=== PATIENT | male | born 1955 | race Caucasian/White ===

== ENCOUNTER 2022-01-24 07:50 | Outpatient (RCR) | payer MEDICARE, SELFPAY ==
--- NOTE | 2022-01-24 08:04 | PTOPEVAL1 ---
Assessment and note entered by Georgi Martini Evaluation Information Assessment Status Evaluation Diagnosis right shoulder pain Onset 04/10/21 Subjective Information Pt. reports that he began noticing shoulder pain at the beginning of the year. He reports that while performing some yard work he began noting discomfort in the right shoulder. He describes pain in the lateral brachial region. He has difficulty with reaching behind the back or raising his arm to reach overhead. He states that pain in the right shoulder will wake him at night . He is currently taking Diclofenac, which has helped to reduce his pain. He reports that he enjoys bike riding and pain will affect riding the bike. He reports that his goal is to decrease his right shoulder pain. Reported Pain Level Pain Score 9,2: Self Report Assessment PT Clinical Summary Pt. is a 66 year old male who enters the clinic with right shoulder pain. He presents with indication of right shoulder impingement syndrome. He currently presents with right shoulder pain, weakness, impaired ROM and impaired postural awareness. Continued treatment is indicated in order to address these areas to allow for improved comfort with all IADL's. Plan of Care Interventions Electrical Stimulation,Hot Pack/Cold Pack,Manual Therapy,Patient/Caregiver Educati,Therapeutic Activities,Therapeutic Exercise PT Services Indicated Yes Treatment Frequency and 2x/week x 8 visits Duration These treatments will address the objective and functional deficits as defined above. The patient will be advanced safely and appropriately in order for the patient to progress towards his/her prior level of function. Additional exercises will be introduced and as well as a comprehensive home exercise program upon discharge, if needed, ?to ensure carryover of functional gains achieved in the clinic. This treatment plan has been reviewed and agreement upon by the patient.
--- NOTE | 2022-02-16 08:35 | PTOPREEVAL ---
Assessment and note entered by JT File, PT Evaluation Information Assessment Status Re-evaluation Diagnosis right shoulder pain Onset 04/10/21 Subjective Information patient reports he feels 99% better at rest this morning. however, he reports last night laying on the couch he had his arms up and behind his head and reports the pain in the top of his R shoulder prevented him from continuing to lay there. he reports pain in the anterior R shoulder along the long head tendon of the biceps in the bicipital groove with a combined flexion/abduction/ER movement such as when reaching behind his head. he also reports pain with reaching across his body. patient reports he is better overall in the fact that he no longer has constant discomfort, he is sleeping at night, and reports his pain is lower. he reports the shoulder is usable and he is able to live with it now compared to how he felt when he started therapy. patient reports he is still unable to participate in fishing which he loves to do. Reported Pain Level Pain Score 0,2: Self Report Assessment PT Clinical Summary mr. castro presents to skilled PT services for his 8th skilled therapy visit. thus far, he has been receiving treatment for the R shoulder including rom exercises, strength exercises, and manual therapy. he has also been receiving mechanical traction to the cervical spine for possible nerve related symptoms in the R shoulder. as of this date, he reports feeling much better, but continues to report pain in the anterior R shoulder, impingement symptoms, tendionpathies, and positive ulnar and median ULTT. he display no cervical symptoms. he would do well to continue skilled PT with focus on new addition of nerve glides, continued shoulder strengthening, and flexibility of the R UE to improve rom and functional reaching. patient continues to have met only 1 goal thus far, but is making progress towards all other goals. Plan of Care Interventions Manual Therapy,Mechanical Traction,Patient/ Caregiver Educati,Therapeutic Activities, Therapeutic Exercise PT Services Indicated Yes Treatment Frequency and continue skilled PT 2x weekly for 6 more visits Duration These treatments will address the objective and functional deficits as defined above.
== END 2022-03-09 11:12 | disposition home or self-care (01) ==
LOC: CHSPT 07:50
PROVIDERS: Visit Provider Physician Assistant
DX: M25.511 Pain in right shoulder (principal)
CPT/HCPCS: 97012; 97014; 97110; 97140; 97161; G0283

== ENCOUNTER → 2022-09-03 08:33 | Outpatient (CLI) | payer MEDICARE, SELFPAY ==
--- NOTE | ~2022-09-03 | MR_ITS ---
EXAMINATION: MR knee RT wo con DATE: 09/03/2022 09:42 INDICATION: Medial right knee pain. TECHNIQUE: Magnetic resonance imaging (MRI) of the right knee was performed without intravenous contr ast. Sequences included axial PD-weighted FS FSE, coronal PD-weighted FSE and PD-weighted FS FSE, sag ittal PD-weighted FSE, and sagittal T2-weighted FS FSE. COMPARISON: None. FINDINGS: Medial compartment: There is a complex tear involving body and posterior horn of medial meniscus with flap component infe rior to the body segment in the inferior gutter. There is shallow partial-thickness cartilage loss of tibial condyle. There is partial-thickness cartilage loss of femoral condyle, deep at the lateral ar ticular surface. Tiny osteophytes are noted. Lateral compartment: Lateral meniscus is normal. There is cartilage surface irregularity of tibial condyle and femoral con dyle. Patellofemoral compartment: There is deep partial thickness cartilage loss of patellar medial facet. There is cartilage surface i rregularity of trochlea. Osteophytes are noted. Ligaments and tendons: The anterior and posterior cruciate ligaments are normal. There is a sprain of medial collateral liga ment characterized by thickening and increased signal intensity proximally and surrounding edema. The re are changes of prior sprain of fibular collateral ligament characterized with thickening and incre ased signal intensity proximally. There is mild patellar tendinopathy. Fluid: There is a small knee joint effusion. There is mild prepatellar superficial infrapatellar bursitis. T here is trace fluid in a Jimenez's cyst. There is mild pes anserinus bursitis. IMPRESSION: 1. Moderate chondrosis of medial and patellofemoral compartments and mild chondrosis of lateral yecenia rtment. 2. Tear of medial meniscus. 3. Grade 2 sprain of medial collateral ligament. 4. Small knee joint effusion. Reviewed, dictated and finalized at location A. IMPRESSION: 1. Moderate chondrosis of medial and patellofemoral compartments and mild chond rosis of lateral compartment. 2. Tear of medial meniscus. 3. Grade 2 sprain of medial collateral ligament. 4. Small knee joint effusion.
== END ==
PROVIDERS: PCP Family Medicine Adolescent Medicine; Visit Provider Family Medicine Adolescent Medicine
DX: M25.561 Pain in right knee (principal); M22.2X1 Patellofemoral disorders, right knee; S83.241A Other tear of medial meniscus, current injury, right knee, initial encounter; M25.461 Effusion, right knee
CPT/HCPCS: 73721

== ENCOUNTER 2023-09-14 11:17 | Emergency (ER) | payer MEDICARE, SELFPAY ==
[2023-09-14 11:31] VITALS: BP 114/77; PULSE 59; RESP 18; TEMP 36.6; O2SAT 97
--- NOTE | 2023-09-14 12:30 | ED.SKABFB ---
HPI - Skin/Abscess/Foreign Bdy General Chief complaint: Skin/Abscess/Foreign Body Stated complaint: Poison Lauren Time Seen by Provider: 09/14/23 12:30 Source: patient Mode of arrival: ambulatory Limitations: no limitations History of Present Illness HPI narrative: 68-year-old male presented for complaint of spreading itchy poison lauren rash from both, hands, and legs. Onset 1 week. Has been using [id number] creams without relief. Took 1 dose of Benadryl last night and states he believes it me the poison lauren flare. Denies lip, tongue, or throat swelling, shortness of breath or wheezing. Denies changes to soap, detergent, lotion, or any other exposures. No one else in the house or any contacts with similar symptoms. Review of Systems Review of Systems: CONSTITUTIONAL: Denies body aches, fever, chills, or sweats. EYES: Denies visual changes, redness, or discharge. ENT: Denies rhinorrhea, congestion CARDIOVASCULAR: Denies chest pain, palpitations, or edema. RESPIRATORY: Denies cough or dyspnea. GASTROINTESTINAL: Denies abdominal pain, nausea, vomiting, or diarrhea. SKIN: Reports rash MUSCULOSKELETAL: Denies back pain, joint pain, or myalgia. NEUROLOGIC: Denies headache, numbness, tingling, or weakness. FOR[facility]LY [facility] Surgical History Surgical History History of appendectomy Family History Family History Mother Breast cancer Diabetes mellitus Grandparent Diabetes mellitus Grandparent Diabetes mellitus Other Colon polyp Social History Social History Smoking status: Never smoker Second hand tobacco smoke exposure: No Alcohol intake: never Substance use: never Substance use type: does not use Lack of Transportation: No Lack of Food: Never True Current Housing: I Do Not Have Housing Concerned About Future Housing: No Difficulty Paying Gas/Electric Bills: No Difficulty Paying for Meds: No Currently Unemployed: No Education: Associate Degree Difficulty w/ Childcare or Family Care: No Living arrangements: with family Occupation/Education: retired Gender identity (if verbalized by the patient): Male Sexual Orientation (if Verbalized by the Patient): Straight or Heterosexual Spiritual care concerns: No Agree to blood products: Yes Comments At time of signature, I have reviewed and agree with nursing past medical, surgical, social and family history unless otherwise noted. Please see nursing chart for further information. There is no relevant family history pertinent to the presenting complaint Exam Narrative: GENERAL: Well-appearing HEAD: Normocephalic, atraumatic. EYES: conjunctivae clear, and EOMI. ENT: Mucous membranes moist. Oropharynx without edema, erythema or lesions. NECK: Supple. No lymphadenopathy CHEST: Clear to auscultation. HEART: Regular rate and rhythm. SKIN: Warm, dry. scattered vesicles on erythematous base noted to bilateral forearms, left hand and legs NEURO: Alert and oriented x3. Course Course Emergency Course: Patient is aware of diagnosis, understands and agrees to treatment plan. Anticipatory guidance given. Patient agrees to follow-up as directed and is aware of reasons to seek care at the emergency department. Portions of this record may have been created with voice recognition software Level of Care: Express Care Visit Vital Signs Vital signs: Vital Signs Temperature 97.8 F 09/14/23 11:31 Pulse Rate 59 L 09/14/23 11:31 Respiratory Rate 18 09/14/23 11:31 Blood Pressure 114/77 09/14/23 11:31 Pulse Oximetry 97 09/14/23 11:31 Oxygen Delivery Room Air 09/14/23 11:31 Temperature 97.8 F 09/14/23 11:31 Pulse Rate 59 L 09/14/23 11:31 Respiratory Rate 18 09/14/23 11:31 Blood Pressure 114/77 09/14/23 11:31 Pulse Oximetry 97 06/0
== END 2023-09-14 12:41 | disposition home or self-care (01) ==
PROVIDERS: Emergency Provider Nurse Practitioner Family; PCP Family Medicine Adolescent Medicine
DX: L25.9 Unspecified contact dermatitis, unspecified cause (principal)
CPT/HCPCS: 99213; G0463

== ENCOUNTER 2024-10-02 08:15 | Outpatient (RCR) | payer MEDICARE, SELFPAY ==
[2024-07-10 08:13] VITALS: BMI 28.3
[2024-07-10 08:48] VITALS: BMI 28.3
[2024-08-07 08:20] VITALS: BMI 27.6
[2024-10-02 08:15] VITALS: BMI 26.5
[2024-10-02 08:19] VITALS: BMI 26.5
--- NOTE | 2024-10-02 09:23 | PCDIET ---
MNT consult and follow ups Completed. Pt will require new referral if/when to follow up. See notes [id number]
== END 2024-10-07 09:00 | disposition home or self-care (01) ==
LOC: ANHDMC 08:15
PROVIDERS: PCP Family Medicine Adolescent Medicine; Visit Provider Family Medicine Adolescent Medicine
DX: E11.9 Type 2 diabetes mellitus without complications (principal); Z71.3 Dietary counseling and surveillance
CPT/HCPCS: 97802; 97803